=== PATIENT | female | born 2000 | race African-American/Black ===

== ENCOUNTER 2018-11-24 09:40 | Emergency (ER) | payer OTHER ==
[~2018-11-24] VITALS: Ht 175.3 cm; Wt 74.8 kg
[2018-11-24 09:51] VITALS: BP 129/76
== END 2018-11-24 13:44 | disposition home or self-care (01) ==
LOC: ER 09:40
DX: S90.31XA Contusion of right foot, initial encounter (principal); F17.210 Nicotine dependence, cigarettes, uncomplicated; W22.8XXA Striking against or struck by other objects, initial encounter; Y93.89 Activity, other specified; Y92.89 Other specified places as the place of occurrence of the external cause; Y99.8 Other external cause status